=== PATIENT | female | born 1985 | race Caucasian/White ===

== ENCOUNTER 2018-04-04 23:09 | Emergency (ER) | payer OTHER ==
[~2018-04-04] VITALS: Ht 154.9 cm; Wt 119.6 kg
[~2018-04-04 23:09] MED LIST: AMOX500C PO; GUAI120L35 PO; ONDA4TAB10 SL; PRED50TA PO
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
[2018-04-05] MEDS ORDERED: IV RINGERS SOLUTION,LACTATED 1,000 ML IV ONE (00:30)
[2018-04-05] MEDS ORDERED: MAGNESIUM HYDROXIDE 2,400 MG/30 ML ORAL.SUSP. PO ONE (00:30)
[2018-04-05 00:59] LABS: BASO % 0 % (0-3); EOS # 0.3 x10^3/uL (0.0-0.7); EOS % 3 % (0-3); HEMATOCRIT 27.8 % (36.0-47.0); HEMOGLOBIN 8.6 g/dL (12.0-15.5); LYMPH # 2.6 x10^3/uL (1.0-4.8); LYMPH % 27 % (24-48); MEAN CORPUSCULAR HEMOGLOBIN 20 pg (25-35); MEAN CORPUSCULAR HGB CONC 31 g/dL (31-37); MEAN CORPUSCULAR VOLUME 66 fL (79-100); MONO # 0.6 x10^3/uL (0.0-1.1); MONO % 6 % (0-9); NEUT # 6.2 x10^3uL (1.8-7.7); NEUT % 64 % (31-73); PLATELET COUNT 497 x10^3/uL (140-400); RED BLOOD COUNT 4.21 x10^6/uL (3.50-5.40); RED CELL DISTRIBUTION WIDTH 18.7 % (11.5-14.5); WHITE BLOOD COUNT 9.7 x10^3/uL (4.0-11.0)
[2018-04-05 01:04] LABS: CALCIUM 8.6 mg/dL (8.5-10.1); CREATININE 0.6 mg/dL (0.6-1.0); GFR 115.1; POTASSIUM 3.8 mmol/L (3.5-5.1)
[2018-04-05 02:23] VITALS: BP 114/68
[2018-04-05 02:49] LABS: BACTERIA,URINE 0 /HPF (0-FEW); BARBITURATES NEG (NEG); BENZODIAZEPINES NEG (NEG); BILIRUBIN,URINE NEG (NEG); CANNABINOIDS NEG (NEG); CLARITY,URINE CLEAR; COCAINE NEG (NEG); COLOR,URINE YELLOW; GLUCOSE,URINE NEG (NEG); METHADONE NEG (NEG); NITRITE,URINE NEG (NEG); OPIATES NEG (NEG); PHENCYCLIDINE NEG (NEG); RBC,URINE 0 /HPF (0-2); SQUAMOUS EPITHELIAL CELL,UR OCC /LPF; UROBILINOGEN,URINE 0.2 mg/dL (0.2 mg/dL); WBC,URINE RARE /HPF (0-4)
[2018-04-05 02:50] LABS: AMPHETAMINE/METHAMPHETAMINE POS (NEG)
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
== END 2018-04-05 02:43 | disposition home or self-care (01) ==
LOC: ER 23:09
DX: T81.4XXA Infection following a procedure, initial encounter (principal); K59.00 Constipation, unspecified; D50.9 Iron deficiency anemia, unspecified; E86.0 Dehydration; F15.10 Other stimulant abuse, uncomplicated; Z72.0 Tobacco use; Z90.49 Acquired absence of other specified parts of digestive tract
CPT/HCPCS: 36415; 74022; 80048; 80307; 81001; 83690; 85025; 96360; 96361; 99285; J7120; G0479